=== PATIENT | female | born 1940 | race Caucasian/White ===

== ENCOUNTER 2020-04-21 06:26 | Observation (INO) ==
--- NOTE | 2020-04-09 09:24 | ANES ---
Anesthesia Pre Procedure Eval HOME MEDICATIONS Aspirin [Aspirin Enteric Coated] 81 mg PO DAILY 09/27/14 [Last Taken 09/26/14] Multivitamin [Multi-Vitamin Daily] 1 ea PO DAILY 09/27/14 [Last Taken 09/26/14] Calcium Carbonate/Vitamin D3 [Calcium 600 + Vit D3 Caplet] 2 ea PO DAILY 10/03/15 [Last Taken Unknown] Cholecalciferol (Vitamin D3) [Vitamin D-3] 2,000 unit PO DAILY 10/03/15 [Last Taken Unknown] Wheat Dextrin [Benefiber] 1 ea PO DAILY 10/03/15 [Last Taken Unknown] diphenhydrAMINE HCL [Benadryl] 25 mg PO Q6H PRN 10/03/15 [Last Taken Unknown] melatonin 10 mg capsule 10 mg PO HS 01/18/18 [Last Taken Unknown] vit C 150 mg-vit E 30 unit-lutein 5 pz-nwhtxmrg-jccnd 3 150 mg capsule 1 cap PO DAILY 01/18/18 [Last Taken Unknown] rlvkifcq-xcwkag-bhq-mbq-bdb-whom-horse 100 mg-100 mg-100 mg-125 mg tab 1 tab PO DAILY tab 04/24/18 [Last Taken Unknown] acetaminophen 500 mg tablet 500 mg PO QID PRN 11/13/18 [Last Taken Unknown] famotidine 40 mg tablet 20 mg PO BID tab 12/24/19 [Last Taken Unknown] levothyroxine 50 mcg tablet 50 mcg PO DAILY #90 tab 02/18/20 [Last Taken Unknown] Pravastatin Sodium [Pravachol] 20 mg PO HS 04/09/20 [Last Taken Unknown] Allergies/Adverse Reactions: Allergies Allergy/AdvReac Type Severity Reaction Status Date / Time banana Allergy Unknown allergy Verified 04/09/20 08:51 testing lactose AdvReac Mild constipatio Verified 04/09/20 08:51 n - Planned Procedure Planned Procedure: Left Total Hip Arthroplasty Medication List Reviewed:: Yes Allergies Verified: Yes Medical History (Last Reviewed 04/09/20 @ 09:20 by Fab Dodson CRNA) Osteoarthritis (Chronic) Hip pain, bilateral (Chronic) Positive colorectal cancer screening using Cologuard test (Acute) Compression fracture of body of thoracic vertebra (Chronic) Hypothyroidism (Chronic) Onset Date: ~05/21/13 HLD (hyperlipidemia) (Chronic) Onset Date: Unknown GERD (gastroesophageal reflux disease) (Chronic) Onset Date: ~2004 Chronic pain syndrome (Chronic) Onset Date: Unknown chronic back pain due to compression fx of T3 Macular degeneration Onset Date: Unknown Rt wet-shots; LT dry. Osteoporosis Onset Date: Unknown compression fracture- T3 and T10[2013] alendronate from [id number] [bone density l=-1.7, f 2.3 04/2017] Wears dentures Onset Date: Unknown Wears eyeglasses Onset Date: Unknown Treadmill stress test negative for angina pectoris Onset Date: ~07/07/16 WNL Surgical History (Last Reviewed 04/09/20 @ 09:20 by Fab Dodson CRNA) History of colonoscopy Onset Date: ~03/03/11 bagan Cataract Onset Date: ~03/06/12 01/24/2012- RT 03/06/2012-LT Erosion of transobdurator mid-urethral sling Onset Date: ~03/26/08 [facility] H/O arthroscopy of knee Onset Date: ~1982 Torn ligament- LEFT H/O barium enema Onset Date: ~02/25/11 redundant, tortuous colon, scattered diverticulosis H/O dilation and curettage Onset Date: ~1962 H/O excision of epidermal inclusion cyst Onset Date: ~10/08/15 bagan-left axilla H/O oophorectomy Onset Date: ~1964 History of bladder surgery Onset Date: ~2004 stress incontinence History of hysterectomy Onset Date: ~1964 Family History (Last Reviewed 04/09/20 @ 09:20 by Fab Dodson CRNA) Father , 62-lumphoma Cancer Mother , 65-mi Heart disease Sister , 72-thyroid cancer with mets Cancer - Family Anesthesia History Family History:: no untoward family reactions to anesthesia, no familial bleeding tendencies, no family history of clotting disorders, no family history of premature - Airway/Neck/Teeth Denture Type: Full upper, Full lower Neck Exam: full range of motion Mallampatti Score: 2 Thyromental (T-M) distance: > 6 cm Mandibulo Hyoid distance: > 3 cm - Respiratory Respiratory Physical: lungs clear Smoking Status: Never smoker Sleep Apnea currently treated: No Sleep Apnea by current assessment: No - Cardiovascular Cardiac History: hyperlipidemia Tolerate Activity: Fair Heart Sounds: S1 & S2, Regular - Gastrointestinal NPO since: instructed after 2400 Comments:: history of hepatitis A - Anesthesia Assessment and Plan ASA Class: PS, II Anesthesia Type Plan: Spinal
[~2020-04-21 06:26] MED LIST: MORPHINE SULFATE 15 MG TABLET.SA PO PRN; ROPIVACAINE HCL/PF 100 MG, EPINEPHrine 0.2 MG, KETOROLAC TROMETHAMINE 30 MG in NORMAL S... IJ PRN; TRANEXAMIC ACID 1,000 MG in NORMAL SALINE 100 ML IV PRN; ceFAZolin SODIUM 1 GM VIAL IV PRN
[2020-04-21] MEDS ORDERED: ISOPROPYL ALCOHOL 480 APPL BTL MC ONE (06:36)
[2020-04-21] MEDS ORDERED: ceFAZolin SODIUM 1 GM VIAL ONE (06:36)
[2020-04-21] MEDS: RINGER'S SOLUTION,LACTATED 1,000 ML IV PRN ×3 (06:51→10:15)
[2020-04-21] MEDS ORDERED: MIDAZOLAM HCL/PF 5 MG/ML VIAL ONE (07:03)
[2020-04-21] MEDS ORDERED: PROPOFOL VIAL IV ONE (07:03)
[2020-04-21] MEDS ORDERED: BUPIVACAINE HCL/PF 10 ML VIAL ONE (07:03)
[2020-04-21] MEDS ORDERED: ONDANSETRON HCL/PF 2 MG/ML VIAL IV PRN (10:09)
[2020-04-21] MEDS ORDERED: ACETAMINOPHEN 500 MG TABLET PO PRN (10:09)
[2020-04-21] MEDS ORDERED: MORPHINE SULFATE 2 MG/ML DISP.SYRIN IV PRN (10:09)
[2020-04-21] MEDS ORDERED: ZOLPIDEM TARTRATE 5 MG TABLET PO PRN (10:09)
[2020-04-21] MEDS ORDERED: MAGNESIUM HYDROXIDE 30 ML UDC PO PRN (10:09)
[2020-04-21] MEDS ORDERED: diphenhydrAMINE HCL 50 MG/ML VIAL IV PRN (10:09)
[2020-04-21] MEDS ORDERED: MAG HYDROX/ALUMINUM HYD/SIMETH 30 ML UDC PO PRN (10:09)
[2020-04-21] MEDS ORDERED: DEXTROSE 5%-LACTATED RINGERS 1,000 ML IV PRN (10:09)
--- NOTE | 2020-04-21 10:15 | OR ---
Operative Report - Dictated Report Narrative: Date: 04/21/2020 Preoperative diagnosis: Left hip degenerative joint disease. Postoperative diagnosis: Left hip degenerative joint disease. Procedure: Left total hip arthroplasty. Surgeon: Rambo Bell M.D. Air Conditioning Service Technician: Walter Marin PA-C (provided an essential set of skilled, educated and assisted with transfer, positioning, prepping, draping, manipulation, traction, irrigation, suturing, and placement of dressings all of which cannot be performed by the available surgical crew) Anesthesia: Spinal and local periarticular joint injection. Complications: None Specimens: Bone. Estimated blood loss: 75 milliliters. Retained implants: Depuy [place] size 6 femoral stem standard offset. Size 54 millimeter outside diameter 3-hole [place] Gription acetabular cup. 54 millimeter outside by 36 millimeter inside diameter highly cross-linked acetabular liner. 36 millimeter diameter +5 millimeter cobalt chromium femoral head. Cancellous 6.5mm screw 30 millimeter length Indications: Mrs. Zambrano is a 79-year-old female who has had longstanding left hip pain and arthrosis. This patient was followed in my clinic for period of time with significant complaints of left hip pain consistent with arthritic changes. She failed conservative measures including but not limited to activity modification, passage of time, medications, and other conservative measures. Patient wished to proceed with surgical treatment. The risks, benefits, and alternatives were discussed in clinic. The risks of , blood clots, bleeding, infection, nerve/tendon blood vessel/ injury, malposition of components, dislocation and/or instability of joint, intraoperative fracture, postoperative limited range of motion, persistent pain, failure of components, and need for additional procedures. Patient wished to proceed. Consent was obtained after answering all questions. Procedure: After marking the correct extremity on the floor, the patient was taken to the operating room. A timeout was performed. IV antibiotics consisting of Ancef were administered prior to the procedure. A spinal anesthetic was induced by anesthesia. A Santoyo catheter was inserted. The patient was then transitioned to a lateral position on a well-padded pegboard. An axillary roll was placed. The head was in neutral position. The non- operative down leg was well-padded with SCD and GUERRERO hose in place. The arms were supported and padded to protect from any undue pressure on the bony p rominences and nerves. A well-padded anterior and posterior pelvic and chest posts were secured in order to maintain a stable position of the pelvis. This was placed so that the pelvis was perpendicular to the floor. The body was in line with the pelvis. Once it was felt that we had protected all the bony prominences and the patient was well secured with a safety belt as well, the leg was pre-scrubbed with alcohol, prepped and draped in a standard sterile fashion. A standard anterior lateral hip incision was marked out over the greater trochanter. [place]an drapes were then placed. The skin incision was then made. Sharp dissection with a scalpel utilizing cautery for hemostasis was carried out down to the gluteus and iliotibial band fascia. This was split in line with the skin incision. The greater trochanter bursa was excised. The anterior and posterior margins of the abductor tendon were identified. The anterior 1/2-1/3 of the tendon was tagged and reflected off the greater trochanter leaving a sleeve of tendon for repair at the completion of the case. This exposed the underlying hip joint capsule. A limb length stitch was placed in the skin and referencedd off a marge on the greater trochanter for evaluation of intraoperative limb lengths. An inverted T-type capsulotomy was made extending this up to the brim of the acetabulum. Using Homans to assist with elevation of the soft tissues off the anterior, superior, and inferior aspects of the femoral neck, the hip was then placed in a figure 4 position and the femoral head was dislocated. With the leg in an externally rotated and adducted position, the cutting flag was utilized in order to marge for a standard femoral neck cut approximately a fingerbreadth above the level of the lesser trochanter. This was done with reference to pre-operative films and overall alignment. This was done while protecting the surrounding soft tissues with Homans. The femoral head was then removed and sized for guidance on preparation of the acetabulum. It was noted that there was loss of articular cartilage on both the femoral head and weightbearing portions of the acetabulum. We then returned the leg to the table and turned our attention to the acetabulum. While protecting the surrounding soft tissues, the labrum and remaining tissue in the fovea were excised using a scalpel and cautery. A series of reamers up to size 54 millimeter were utilized to prepare the acetabulum. The final reamer had good purchase and exposed the bleeding subchondral bone. The acetabulum was then thoroughly irrigated ensuring that all bony and cartilaginous materials were removed, and the final acetabular shell was impacted into place. This was placed in approximately 45 degrees of abduction and 20 degrees of anteversion utilizing the outrigger and body axis for alignment. This had a good press fit. 1 6.5mm cancellous screw was placed in the superior posterior quadrant of the acetabulum. The shell was then thoroughly irrigated and the final polyethylene was impacted into place ensuring that it seated completely. This was then protected with a sponge while we returned our attention to the femur. With the leg in a figure 4 position, utilizing Homans for soft tissue protection, a box cutting osteotome, followed by Charnley awl, followed by serial reamers and broaches were utilized in order to prepare the femur. It was found that a size 6 broach gave good axial and rotational stability. The calcar reamer was utilized in order to clean up the cut edges. The proximal femur was visualized to ensure that there were no signs of fracture. A series of heads and necks were trialed. It was found that a standard offset neck and a + 5 femoral head gave good overall stability. There was minimal longitudinal instability. With the leg in the position of sleep, the femoral head was well covered. Hip range of motion was able to reach full extension and external rotation to greater than 75 degrees prior to impingement along the posterior acetabulum. The hip was able to be flexed to greater than 90 degrees with internal rotation greater than 60 degrees prior to anterior impingement. The limb lengths were near equal based on comparison to the contralateral side and the prior placed limb length stitch. At this point it was felt these were the appropriately sized femoral components as well as neck and femoral head. The trial implants were removed. The femur was thoroughly irrigated. The final implants were impacted into place, and the hip was reduced. After ensuring that there was no damage to the proximal femur, the standard periarticular joint injection of ropivacaine, Toradol, and epinephrine were injected into the joint capsule and surrounding soft tissues. Anesthesia then administered intravenous tranexamic acid. The capsule was repaired with a single interrupted #1 Vicryl. The abductor tendon was repaired to the greater trochanter utilizing #5 [place] through drill holes. This was oversewn with #1 Vicryl. The fascia was closed with interrupted #1 Vicryl and #1 strata fix barbed suture. The wounds were thoroughly irrigated as we closed in layers. The deep and subcutaneous fat layers were closed with 0 and 3-0 Vicryl respectively. The subcutaneous tissue was closed with a running 3-0 Vicryl and the skin dilcia. All sponge, needle, blade, and instrument counts were correct prior to closing the wounds. Sterile dressings consisting of xeroform, 4 x 4's, and tape were applied. The patient was awoken and transferred to her hospital bed and then to the postanesthesia care unit in stable condition. Postoperative condition: The plan is to admit to the medical/surgical inpatient floor postoperatively. There will be a projected 1 to 3 day hospital stay. Pos toperatively 24 hours of IV antibiotics, pain control, physical therapy, occupational therapy, and medical comanagement will be utilized. Patient will be weightbearing as tolerated with anterior hip precautions. Postoperative films will be obtained in the recovery room.
--- NOTE | 2020-04-21 10:25 | ANES ---
Post Anesthesia Discharge - Transfer of Care Transfer of Care handoff given to nurse: Yes - Discharge from PACU Discharge from PACU when meets criteria: Yes - Alert and comfortable.
--- NOTE | 2020-04-21 11:19 | ANES ---
Post Anesthesia Assessment - Vital Signs Vitals: Last Vital Signs Temp 36.4 C 04/21/20 10:50 Pulse 69 04/21/20 10:50 Resp 16 04/21/20 10:50 BP 94/55 04/21/20 10:50 Pulse Ox 98 04/21/20 10:50 Airway Patency: Normal - Mental Status Level Of Consciousness: Awake, Alert, Appropriate - Pain Level Pain Score: 0 - N/V Assessment Nausea/Vomiting Presence: None Dehydration:: No
[2020-04-21] MEDS: KETOROLAC TROMETHAMINE 15 MG/ML VIAL IV SCH ×2 (12:00→17:51)
[2020-04-21] MEDS: ceFAZolin SODIUM 1 GM in DEXTROSE 5 % IN WATER 100 ML IV SCH ×4 (12:06→17:51)
[2020-04-21] MEDS: oxyCODONE HCL/ACETAMINOPHEN 1 TAB TABLET PO PRN (20:06)
[2020-04-21] MEDS ORDERED: MELATONIN 3,000 MCG TABLET PO SCH (21:00)
[2020-04-21] MEDS ORDERED: SIMVASTATIN 10 MG TABLET PO SCH (21:00)
[2020-04-21] MEDS ORDERED: SENNOSIDES/DOCUSATE SODIUM 1 TAB TABLET PO SCH (21:00)
[2020-04-21] MEDS: FAMOTIDINE 20 MG TABLET PO SCH (21:46)
[2020-04-22] MEDS: ceFAZolin SODIUM 1 GM in DEXTROSE 5 % IN WATER 100 ML IV SCH ×2 (00:05)
[2020-04-22] MEDS: KETOROLAC TROMETHAMINE 15 MG/ML VIAL IV SCH ×3 (00:06→10:34)
[2020-04-22] MEDS: oxyCODONE HCL/ACETAMINOPHEN 1 TAB TABLET PO PRN ×2 (04:27→10:33)
[2020-04-22 06:20] LABS: Hematocrit 30.7 % (37.0-47.0); Hemoglobin 9.8 gm/dL (12.5-16.0); Mean Cell Volume 92.5 fl (78-100); Mean Corpuscular Hemoglobin 29.5 pg (27-31); Mean Corpuscular Hgb Conc 31.9 g/dl (32-36); Mean Platelet Volume 9.4 fl (8-12.5); Platelet Count 233 K/mm3 (150-450); Red Blood Count 3.32 M/mm3 (4.2-5.4); Red Cell Distribution Width 12.4 % (11.5-14.0); White Blood Count 7.4 K/mm3 (4.0-10.5)
[2020-04-22 06:27] LABS: Calcium * 8.9 mg/dL (7.9-10.9); Carbon Dioxide 27.1 mmol/L (24-32.6); Estimated Creat Clear 51.9; Potassium 4.1 mmol/L (3.4-4.6)
[2020-04-22] MEDS ORDERED: LEVOTHYROXINE SODIUM 50 MCG TABLET PO SCH (07:00)
[2020-04-22] MEDS: FAMOTIDINE 20 MG TABLET PO SCH (08:31)
--- NOTE | 2020-04-22 08:40 | DS ---
(1) Chronic pain syndrome Problem: Chronic (2) Compression fracture of body of thoracic vertebra Problem: Chronic (3) GERD (gastroesophageal reflux disease) Problem: Chronic Qualifiers: (4) HLD (hyperlipidemia) Problem: Chronic Qualifiers: (5) Hypothyroidism Problem: Chronic Qualifiers: (6) Senile osteopenia Problem: Chronic (7) Status post total hip replacement, left Problem: Acute Date of Discharge:: 04/22/20 Hospital Course: Mrs. Zambrano was admitted to the floor after undergoing left total hip arthroplasty. Tolerated this well. Was admitted to the floor postoperatively for 24 hours of IV antibiotics, pain control, medical comanagement, and occupational and physical therapy. OT and PT were consulted to assist with activities of daily living and ambulation. Was made weightbearing as tolerated with anterior hip precautions. Pain was initially controlled with IV regimen. This was transitioned to oral once tolerating a by mouth intake. Was resumed on home diet and medications. A Santoyo catheter was inserted in the operating room which was discontinued by postoperative day 1. Lovenox, SCDs, and GUERRERO hose were utilized for DVT prophylaxis. Vital signs remained stable to the hospital course. Labs were obtained which showed a final hemoglobin of 9.8 grams. BMP was reviewed and was stable. Physical examination throughout the hospital course showed an extremity that had sensation that was intact to light touch, palpable pulses, a benign wound, motor intact to the toes, ankle, and knee. Once an oral pain regimen was tolerated and physical therapy goals were met, it was felt that they were stable for discharge to home. Instructions: Continue with weightbearing as tolerated and anterior precautions. Keep the wound dry and covered in the shower. Do not bathe or soak the wound. If there is any drainage from the wound keep the wound clean and dry and cover with dry gauze and tape. Change every 2-3 days as needed if there is any drainage. Cover wound while showering. Continue with physical therapy. Resume home diet. Report any fever over 101.5 Fahrenheit, uncontrolled pain, increased drainage, foul odor of drainage, new or increased calf pain or shortness of breath, or any other significant complaints. A 325mg daily aspirin will be started after finishing anticoagulation if not allergic. Continue with GUERRERO hose on the operative extremity until instructed otherwise. No driving until instructed otherwise. Follow up in approximately 2-3 weeks. Procedures Performed: see notes below List Procedures: Left total hip arthroplasty Results and Findings: Lab Pending Results 04/22/20 06:16: WBC 7.4, RBC 3.32 L, Hgb 9.8 L, Hct 30.7 L, MCV 92.5, MCH 29.5, MCHC 31.9 L, RDW 12.4, Plt Count 233, MPV 9.4 04/22/20 06:16: Sodium 137, Plasma Sodium 137, Potassium 4.1, Chloride 103, Carbon Dioxide 27.1, Anion Gap 11.0, BUN 16, Creatinine 0.84, Est GFR (Non-Af Amer) 69, BUN/Creatinine Ratio 19.0, Random Glucose 118 H, Calcium 8.9 Discharge Location: Home Disposition: Home self-care Condition: Good Discharge Activity: Weight bearing, Other - Anterior hip precautions Discharge Diet: General/regular food Referrals: Charan Patel DO [Primary Care Provider] - Additional Patient Instructions (free text): Physical Therapy at [facility] outpatient rehab department on April 23 at 8:15 a.m. Follow up [facility] Orthopedic appointment on TuesdayMay 06 at 1:15pm. Prescriptions (Any new or edited meds): Enoxaparin Sodium [Lovenox] 40 mg SC Q24H #7 disp.syrin Transmission Status: Pending to [place], [place] oxyCODONE HCL/ACETAMINOPHEN [Percocet 5 MG/325 MG] 1 tab PO Q2H PRN #40 tab PRN Reason: Moderate Pain (Pain Scale 4-6) Transmission Status: Received by [place], [place] Sennosides/Docusate Sodium [Senokot-S] 2 tab PO HS #60 tab Transmission Status: Pending to [place], [place] Complete Home Medications List: Complete Home Medication List: Multivitamin [Multi-Vitamin Daily] 1 ea PO DAILY 09/27/14 Calcium Carbonate/Vitamin D3 [Calcium 600-Vit D3 800 Caplet] 2 ea PO DAILY 10/03/15 Cholecalciferol (Vitamin D3) [Vitamin D3] 2,000 unit PO DAILY 10/03/15 Wheat Dextrin [Benefiber] 1 ea PO DAILY 10/03/15 diphenhydrAMINE HCL [Benadryl] 25 mg PO Q6H PRN 10/03/15 melatonin 10 mg capsule 10 mg PO HS 01/18/18 vit C 150 mg-vit E 30 unit-lutein 5 qv-xxnhdvbx-mkwxt 3 150 mg capsule 1 cap PO DAILY 01/18/18 solgcnbw-mqnmmo-kdq-wvg-nhv-tlyf-horse 100 mg-100 mg-100 mg-125 mg tab 1 tab PO DAILY tab 04/24/18 famotidine 40 mg tablet 20 mg PO BID tab 12/24/19 levothyroxine 50 mcg tablet 50 mcg PO DAILY #90 tab 02/18/20 Pravastatin Sodium [Pravachol] 20 mg PO HS 04/09/20 Enoxaparin Sodium [Lovenox] 40 mg SC Q24H #7 disp.syrin 04/22/20 Sennosides/Docusate Sodium [Senokot-S] 2 tab PO HS #60 tab 04/22/20 oxyCODONE HCL/ACETAMINOPHEN [Percocet 5 MG/325 MG] 1 tab PO Q2H PRN #40 tab 04/22/20 Amb Orders for Discharge: PT Evaluation and Treatment* Facility: [facility], Location: Re habilitation Services Forms: Patient Portal Registration
[2020-04-22] MEDS ORDERED: CALCIUM CARBONATE/VITAMIN D3 1 TAB TABLET PO SCH (09:00)
[2020-04-22] MEDS ORDERED: MULTIVITAMINS 1 CAP CAPSULE PO SCH (09:00)
[2020-04-22] MEDS ORDERED: PSYLLIUM SEED 1 PACKET PACKET PO SCH (09:00)
[2020-04-22] MEDS ORDERED: [UNRECOGNIZED DRUG - OTHER] PO SCH (09:00)
[2020-04-22] MEDS ORDERED: BETA-CAROTENE(A) W-C , E/MIN 1 TAB TABLET PO SCH (09:00)
[2020-04-22] MEDS ORDERED: CHOLECALCIFEROL 1,000 UNIT CAPSULE PO SCH (09:00)
[2020-04-22] MEDS ORDERED: ENOXAPARIN SODIUM 40 MG/0.4 ML SYRG SC SCH (09:10)
[2020-04-22 14:18] VITALS: BP 111/39
== END 2020-04-22 15:10 | disposition home or self-care (01) ==
LOC: SUR 06:26 → MS 06:26
PROVIDERS: ADMIT Orthopaedic Surgery; ATTEND Orthopaedic Surgery